=== PATIENT | female | born 1955 | race Caucasian/White ===

== ENCOUNTER 2016-11-09 17:32 | Emergency (ER) | payer OTHER | END 2016-11-09 18:55 | disposition home or self-care (01) | LOC: ER 17:32 | DX: S80.11XA Contusion of right lower leg, initial encounter (principal); S60.222A Contusion of left hand, initial encounter; E66.9 Obesity, unspecified; K21.9 Gastro-esophageal reflux disease without esophagitis; Z85.3 Personal history of malignant neoplasm of breast; V89.2XXA Person injured in unspecified motor-vehicle accident, traffic, initial encounter; Z86.718 Personal history of other venous thrombosis and embolism | CPT/HCPCS: 36415 ==